=== PATIENT | female | born 1990 | race Hispanic/Latino ===

== ENCOUNTER 2018-04-21 20:58 | Emergency (ER) | payer SELFPAY ==
[2018-04-21 21:31] LABS: Pregnancy Test - Urine (BHCG) POSITIVE (Negative); Pregu Control Background? CLEAR/WHITE (CLR/WHITE); Pregu Control Bar Appear? YES (CONTROL BAR)
[2018-04-21 21:34] LABS: Bilirubin Negative (Negative); Blood, Urine Negative (Negative); Clarity CLOUDY (Clear); Glucose, Urine (Dipstick) Negative (Negative); Leukocyte Moderate (Negative); Nitrite Negative (Negative); Protein, Urine (Dipstick) Negative (Neg-Trace); Specific Gravity, Urine 1.023 (1.002-1.036); Urobilinogen 0.2 mg/dL (0.2-1.0); pH, Urine 5.5 (5.0-9.0)
[2018-04-21 21:36] LABS: Bacteria/HPF Rare-Few HPF (None Seen); Hyaline Casts/LPF 7-10 HYALINE CAST LPF (0-3 Hyaline)
[2018-04-21 21:38] LABS: Specific Gravity 1.023 (1.002-1.036)
[2018-04-21 21:46] LABS: RBC/HPF 0-3 HPF (0-3)
[2018-04-21 21:47] LABS: #Basophils 0.1 thou/uL (0.0-0.2); #Lymphocytes 1.9 thou/uL (1.20-3.40); #Monocytes 0.6 thou/uL (0.11-0.59); #Neutrophils 4.9 thou/uL (1.40-6.50); %Basophils 0.9 % (0.0-1.0); %Eosinophils 0.6 % (0.0-10.0); %Lymphocytes 25.7 % (21.0-51.0); %Monocytes 8.1 % (0.0-10.0); %Neutrophils 64.7 % (42.0-75.0); Hemoglobin 12.8 g/dL (12.0-16.0); Mean Corpuscular Hemoglobin 27.7 pg (27.0-31.0); Mean Corpuscular Volume 81.4 fl (81.0-99.0); Mean Platelet Volume 8.4 fL (7.4-10.4); Platelet Count 231 thou/uL (130-400); RBC Distribution Width 15.3 % (11.5-14.5); Red Blood Cell (RBC) Count 4.62 mill/uL (4.20-5.40); White Blood Cell (WBC) Count 7.6 thou/uL (4.8-10.8)
[2018-04-21 22:04] LABS: BHCG - Serum POSITIVE (NEGATIVE); Pregs Control Background? CLEAR/WHITE (CLR/WHITE); Pregs Control Bar Appear? YES (CONTROL BAR)
[2018-04-21 22:07] LABS: ALT (SGPT) 8 U/L (8-55); AST (SGOT) 16 U/L (5-34); Albumin 4.4 g/dL (3.5-5.0); Alkaline Phosphatase 55 U/L (40-150); Anion Gap 11 mmol/L (10-20); BUN (Urea Nitrogen) 8 mg/dL (7.0-18.7); Bilirubin, Total 0.9 mg/dL (0.2-1.2); Calc. Creatinine Clearance 0 mL/min (70-130); Calcium 9.3 mg/dL (7.8-10.44); Carbon Dioxide 25 mmol/L (22-29); Chloride 102 mmol/L (98-107); Estimated GFR-MDRD Greater than 90; Globulin 2.7 g/dL (2.4-3.5); Glucose 89 mg/dL (70-105); Lipase 21 U/L (8-78); Potassium 3.5 mmol/L (3.5-5.1); Protein, Total 7.1 g/dL (6.0-8.3); Sodium 134 mmol/L (136-145)
--- NOTE | 2018-04-21 23:43 | ULT ---
OB ULTRASOUND: Date: 04/21/18 PROVIDED CLINICAL HISTORY: , IUD. FINDINGS: A single live intrauterine gestation is documented, 6 weeks/4 days by crown-rump length. Heart rate o f 116 beats/minute is documented. This is immediately adjacent to linear increased echogenicity desi tible with known intrauterine device. The right ovary measures about 2.6 x 3.2 x 2.7 cm, and appears sonographically unremarkable. The left ovary is not visualized. Color Doppler and spectral analysis of the right ovary reveals normal flow. There is a focal area of diminished echogenicity measuring about 2.4 cm, also adjacent to the IUD. It is not certain on the basis of this study whether this reflects a myometrial or endometrial process. This could reflect perigestational hemorrhage, though this is not completely certain. IMPRESSION: Single, live intrauterine gestation adjacent to IUD, as above. POS: [facility]
[2018-04-22] MEDS ORDERED: Metoclopramide HCl 10 MG/2 ML VIAL ONE (00:29)
[2018-04-22] MEDS ORDERED: diphenhydrAMINE 50 MG/ML VIAL ONE (00:29)
[2018-04-25 01:36] LABS: Chlamydia by PCR Not Detected (NotDetected); GC by PCR Not Detected (NotDetected)
== END 2018-04-22 02:25 | disposition home or self-care (01) ==
LOC: ERS 20:58
DX: O21.0 Mild hyperemesis gravidarum (principal); O23.41 Unspecified infection of urinary tract in pregnancy, first trimester; O99.011 Anemia complicating pregnancy, first trimester; D57.3 Sickle-cell trait; Z3A.09 9 weeks gestation of pregnancy
CPT/HCPCS: 36415; 76856; 80053; 81003; 81015; 81025; 83690; 84702; 84703; 85025; 87480; 87491; 87510; 87591; 87660; 93976; 96365; 96375; J1200; J2765

== ENCOUNTER 2018-04-27 08:45 | Emergency (ER) | payer MEDICAID, SELFPAY ==
[2018-04-27 09:29] LABS: Bilirubin Negative (Negative); Blood, Urine Negative (Negative); Clarity CLOUDY (Clear); Glucose, Urine (Dipstick) Negative (Negative); Leukocyte Small (Negative); Nitrite Negative (Negative); Protein, Urine (Dipstick) Negative (Neg-Trace); Specific Gravity, Urine 1.016 (1.002-1.036); Urobilinogen 0.2 mg/dL (0.2-1.0); pH, Urine 6.5 (5.0-9.0)
[2018-04-27 09:32] LABS: Bacteria/HPF None Seen HPF (None Seen); Hyaline Casts/LPF 7-10 HYALINE CAST LPF (0-3 Hyaline); RBC/HPF 0-3 HPF (0-3); Squamous Epithelial 0-3 HPF (0-3); WBC/HPF 0-3 HPF (0-3)
[2018-04-27 09:36] LABS: Pathc Cast-AUWi Flag 3.19 (0-2.49)
[2018-04-27 09:37] LABS: Manual Microscopic Reviewed? No Path Casts Seen; Renal Epithelial None Seen HPF (0-3); Transitional Epithelial NONE SEEN HPF (0-3)
[2018-04-27 09:37] LABS: #Eosinphils 0.1 thou/uL (0.0-0.7); #Lymphocytes 2.1 thou/uL (1.20-3.40); #Monocytes 0.6 thou/uL (0.11-0.59); #Neutrophils 4.3 thou/uL (1.40-6.50); %Basophils 0.5 % (0.0-1.0); %Lymphocytes 29.6 % (21.0-51.0); %Neutrophils 60.9 % (42.0-75.0); Hemoglobin 12.2 g/dL (12.0-16.0); Mean Corpuscular HGB CONC 34.7 g/dL (32.0-36.0); Mean Corpuscular Hemoglobin 28.5 pg (27.0-31.0); Mean Corpuscular Volume 82.2 fl (81.0-99.0); Platelet Count 225 thou/uL (130-400); RBC Distribution Width 15.5 % (11.5-14.5); Red Blood Cell (RBC) Count 4.29 mill/uL (4.20-5.40); White Blood Cell (WBC) Count 7.1 thou/uL (4.8-10.8)
--- NOTE | 2018-04-27 16:12 | ULT ---
PELVIC ULTRASOUND: HISTORY: Abdominal pain. patient with intrauterine device. COMPARISON: 04/21/18. FINDINGS: Uterus is identified, without myometrial masses. Uterus measures 8.8 x 6.2 x 7.2 cm. Redemonstratio n of a gestational sac, yolk sac, and pole. There are heart tones with a rate of 162 b.p .m. Hutchinson-rump length is 1.12 cm corresponding to a gestational age of 7 weeks 2 days. Intrauterine device is noted. No subchorionic hemorrhage. Ovaries have a normal echotexture. The right ovary measures 4.0 x 2.4 x 1.8 cm. Questionable left o vary. Evaluation is limited due to location. What may be the left ovary measures 2.7 x 1.8 x 2.4 cm . There is no free fluid. OVARIAN DOPPLER: There is vascular flow to the right ovary. Flow is not appreciated in what is possibly the left ovar y. IMPRESSION: 1. Single intrauterine gestation with heart tones. Heart rate is 162 b.p.m. 2. Gestational age by crown-rump length is 7 weeks 2 days. 3. Intrauterine device is redemonstrated. 4. There is flow in the right ovary. 5. Lack of flow in what may be the left ovary. Correlate clinically. Results of the study discussed with Dr. Shama Cates 04/27/18 at 10:25 a.m. CODE TOMMIE POS: [facility]
== END 2018-04-27 10:50 | disposition home or self-care (01) ==
LOC: ERS 08:45
DX: O20.0 Threatened abortion (principal); Z79.899 Other long term (current) drug therapy; Z3A.11 11 weeks gestation of pregnancy
CPT/HCPCS: 36415; 51701; 76856; 81003; 81015; 84702; 85025; 86900; 86901

== ENCOUNTER 2018-05-11 18:41 | Emergency (ER) | payer MEDICAID ==
[2018-05-11 19:12] LABS: Bilirubin Negative (Negative); Blood, Urine Large (Negative); Clarity CLEAR (Clear); Glucose, Urine (Dipstick) Negative (Negative); Leukocyte Moderate (Negative); Nitrite Negative (Negative); Protein, Urine (Dipstick) Negative (Neg-Trace); Specific Gravity, Urine 1.014 (1.002-1.036); Urobilinogen 0.2 mg/dL (0.2-1.0); pH, Urine 6.5 (5.0-9.0)
[2018-05-11 19:14] LABS: #Basophils 0.1 thou/uL (0.0-0.2); #Eosinphils 0.1 thou/uL (0.0-0.7); #Lymphocytes 2.7 thou/uL (1.20-3.40); #Monocytes 0.7 thou/uL (0.11-0.59); %Basophils 0.6 % (0.0-1.0); %Eosinophils 0.8 % (0.0-10.0); %Lymphocytes 23.2 % (21.0-51.0); %Monocytes 6.2 % (0.0-10.0); %Neutrophils 69.3 % (42.0-75.0); Hemoglobin 12.7 g/dL (12.0-16.0); Mean Corpuscular HGB CONC 34.8 g/dL (32.0-36.0); Mean Corpuscular Hemoglobin 28.7 pg (27.0-31.0); Mean Corpuscular Volume 82.4 fl (81.0-99.0); Mean Platelet Volume 7.9 fL (7.4-10.4); Platelet Count 259 thou/uL (130-400); RBC Distribution Width 15.5 % (11.5-14.5); Red Blood Cell (RBC) Count 4.41 mill/uL (4.20-5.40); White Blood Cell (WBC) Count 11.5 thou/uL (4.8-10.8)
[2018-05-11 19:15] LABS: Bacteria/HPF None Seen HPF (None Seen); Hyaline Casts/LPF 0-3 HYALINE CAST LPF (0-3 Hyaline); Pathc Cast-AUWi Flag 0.29 (0-2.49); RBC/HPF 0-3 HPF (0-3); Squamous Epithelial 0-3 HPF (0-3)
--- NOTE | 2018-05-11 20:11 | ULT ---
PELVIC ULTRASOUND TRANSVAGINAL WITH DOPPLER: History: Vaginal bleeding. Comparison: Pelvic ultrasound, 04-27-18 Technique: Real-time grayscale, color, and spectral analysis of the pelvis was performed via transabd ominal approach. FINDINGS: Single live intrauterine . Both ovaries are normal. Vascular flow to both ovaries. heart rate 173 beats/minute. Macarthur-rump length is 2.7 cm, 9 week 3 day. The uterus measures 11.2 x 6.3 x 9.6 cm. IMPRESSION: Normal single live intrauterine . Small subchorionic hematoma. POS: [facility]
== END 2018-05-11 20:10 | disposition home or self-care (01) ==
LOC: ERS 18:41
DX: O20.0 Threatened abortion (principal); O99.011 Anemia complicating pregnancy, first trimester; D57.3 Sickle-cell trait; Z3A.09 9 weeks gestation of pregnancy
CPT/HCPCS: 36415; 76856; 81003; 81015; 84702; 85025; 86900; 86901; 94760

== ENCOUNTER 2018-05-14 18:35 | Inpatient (IN) | payer MEDICAID, OTHER ==
[2018-05-14] MEDS ORDERED: Ondansetron ODT 4 MG TAB ONE (19:00)
[2018-05-14 19:10] LABS: Hemoglobin 12.7 g/dL (12.0-16.0); Mean Corpuscular Hemoglobin 28.6 pg (27.0-31.0); Mean Corpuscular Volume 81.6 fl (81.0-99.0); Mean Platelet Volume 7.9 fL (7.4-10.4); Platelet Count 244 thou/uL (130-400); RBC Distribution Width 15.1 % (11.5-14.5); Red Blood Cell (RBC) Count 4.46 mill/uL (4.20-5.40); White Blood Cell (WBC) Count 17.2 thou/uL (4.8-10.8)
[2018-05-14 19:25] LABS: Band 12 % (5-11); Lymphocytes 8 % (21-51); MDiff Complete? YES; Monocytes 4 % (0-10); Neutrophil 75 % (42-75); PLT Morphology Comment Appears Adequate; RBC Morphology Normal
[2018-05-14 19:26] LABS: Bilirubin Negative (Negative); Blood, Urine Trace (Negative); Clarity CLEAR (Clear); Glucose, Urine (Dipstick) Negative (Negative); Leukocyte Moderate (Negative); Nitrite Negative (Negative); Protein, Urine (Dipstick) Negative (Neg-Trace); Specific Gravity, Urine 1.017 (1.002-1.036); Urobilinogen 0.2 mg/dL (0.2-1.0); pH, Urine 5.5 (5.0-9.0)
[2018-05-14 19:27] LABS: ALT (SGPT) 9 U/L (8-55); AST (SGOT) 15 U/L (5-34); Albumin 4.1 g/dL (3.5-5.0); Alkaline Phosphatase 68 U/L (40-150); Anion Gap 14 mmol/L (10-20); BUN (Urea Nitrogen) 9 mg/dL (7.0-18.7); Bilirubin, Total 0.4 mg/dL (0.2-1.2); Calc. Creatinine Clearance 0 mL/min (70-130); Calcium 9.5 mg/dL (7.8-10.44); Carbon Dioxide 21 mmol/L (22-29); Chloride 102 mmol/L (98-107); Estimated GFR-MDRD Greater than 90; Glucose 102 mg/dL (70-105); Potassium 3.5 mmol/L (3.5-5.1); Protein, Total 7.1 g/dL (6.0-8.3); Sodium 133 mmol/L (136-145)
[2018-05-14 19:28] LABS: Bacteria/HPF None Seen HPF (None Seen); Hyaline Casts/LPF 0-3 HYALINE CAST LPF (0-3 Hyaline); Pathc Cast-AUWi Flag 0.29 (0-2.49); Squamous Epithelial 0-3 HPF (0-3); WBC/HPF 0-3 HPF (0-3)
[2018-05-14] MEDS ORDERED: Acetaminophen 500 MG TAB ONE (20:24)
[2018-05-14] MEDS ORDERED: Nitroglycerin 0.4 MG TAB (25 Tab Bottle) ONE (20:35)
--- NOTE | 2018-05-14 22:05 | MRI ---
MRI ABDOMEN WITHOUT CONTRAST: 05/14/18 Multiplanar and multisequential imaging abdomen obtained. INDICATIONS: Right lower quadrant pain. the patient has an intrauterine and MRI was performed to rule ou t appendicitis. There is a gravid uterus with an intrauterine identified. Small bowel loops appear normal. the appendix is identified and appears unremarkable. There is no sharon dence of appendicitis. The urinary bladder is mildly distended. The gallbladder is visualized and appears unremarkable. Live r is only partially imaged. The kidneys appear unremarkable. IMPRESSION: No evidence of appendicitis. POS: [facility]
[2018-05-14] MEDS ORDERED: Piperacillin/Tazobactam 3.375 GM VIAL ONE (22:06)
[2018-05-14] MEDS ORDERED: Acetaminophen 325 MG TAB PO PRN (22:18)
[2018-05-14] MEDS ORDERED: Ondansetron ODT 4 MG TAB PO PRN (22:18)
[2018-05-14] MEDS: Sodium Chloride 0.9% 1,000 ML IV SCH (23:25)
[2018-05-15] MEDS: Piperacillin/Tazobactam 3.375 GM in Sodium Chloride 0.9% 100 ML IVPB SCH ×4 (04:10→19:52)
[2018-05-15 06:14] LABS: Band 15 % (5-11); Lymphocytes 7 % (21-51); MDiff Complete? YES; Mean Corpuscular HGB CONC 34.9 g/dL (32.0-36.0); Mean Corpuscular Hemoglobin 28.8 pg (27.0-31.0); Mean Corpuscular Volume 82.5 fl (81.0-99.0); Mean Platelet Volume 7.8 fL (7.4-10.4); Monocytes 8 % (0-10); Neutrophil 70 % (42-75); PLT Morphology Comment Appears Adequate; Platelet Count 201 thou/uL (130-400); RBC Distribution Width 15.2 % (11.5-14.5); RBC Morphology Normal; Red Blood Cell (RBC) Count 3.82 mill/uL (4.20-5.40); White Blood Cell (WBC) Count 15.7 thou/uL (4.8-10.8)
[2018-05-15] MEDS: Sodium Chloride 0.9% 1,000 ML IV SCH ×2 (07:10→18:03)
[2018-05-15] MEDS ORDERED: Ondansetron HCl/PF 4 MG/2 ML Vial SLOW IVP PRN (08:08)
[2018-05-15] MEDS ORDERED: Ondansetron HCl/PF 4 MG/2 ML Vial IVP PRN (08:39)
[2018-05-15] MEDS: Meclizine HCl 25 MG TAB PO SCH ×3 (09:23→22:01)
--- NOTE | 2018-05-15 12:44 | HP ---
DATE OF SERVICE: 05/14/2018 CHIEF COMPLAINT: Vaginal bleeding, abdominal pain, fever. HISTORY OF PRESENT ILLNESS: This is a 28-year-old at approximately 9 weeks' gestation with a M estuardo IUD in place. She sees Dr. Bella after this and has been seen multiple times for vag inal bleeding. She came in tonight with low-grade fever and cramping as well as nausea and vomiting. Previous attempts of removal was unsuccessful as the strings are not visible at the os. REVIEW OF SYSTEMS: Negative for head, eyes, ears, nose, throat, cardiovascular, respiratory, GI, , neuro, psych, musculoskeletal, skin or constitutional symptoms other than mentioned above. PAST MEDICAL HISTORY: Sickle cell trait. PAST SURGICAL HISTORY: None. SOCIAL HISTORY: Negative for tobacco, alcohol, or drug abuse. MEDICATIONS: vitamin. ALLERGIES: No known drug allergies. PHYSICAL EXAMINATION: VITAL SIGNS: Temperature 100, mildly tachycardic in the low 100s, normotensive. GENERAL: Awake, alert, in no acute distress, appears comfortable. CHEST: Nonlabored breathing. ABDOMEN: Soft, mildly tender to palpation in the lower abdomen. No overt fundal tenderness. No gua rding or rebound. PELVIC: Deferred at this time. She is being taken to MRI, but pelvic exam reportedly with a closed cervix and some discomfort on exam. LABORATORY DATA: WBC 17.2, bands 12%, hemoglobin 12.7, hematocrit 36.2, platelets 244,000. Chemistr y unremarkable. Urine unremarkable. Lactate 0.9. IMAGING: MRI, no evidence of appendicitis. Bedside ultrasound performed by ED provider revealed a v iable fetus with cardiac activity. ASSESSMENT AND PLAN: A 28-year-old at 9 weeks 6 days with a viable intrauterine with Mirena IUD in place, given her very low-grade temperature and elevated WBC count and higher risk for intrauterine infection. She will be admitted for IV antibiotics and serial vital signs. We will re peat a CBC with differential in the morning. Dr. Bella was notified of her admission and will be see ing her tomorrow. Intrauterine with a Mirena IUD in place. Previous attempts of removal w ere unsuccessful. The patient will be placed inpatient for serial vitals and repeat labs in the [facility] ing. Zosyn was started in the emergency department and will be continued on the floor. Dr. Bella is aware of the patient and will be seeing her tomorrow. Given her .
[2018-05-15] MEDS ORDERED: Progesterone,Micronized 100 MG CAP FS SCH (13:00)
[2018-05-15] MEDS: diphenhydrAMINE 50 MG/ML VIAL IVP SCH ×2 (15:24→22:02)
[2018-05-15] MEDS: Metoclopramide HCl 10 MG/2 ML VIAL IVP SCH ×2 (15:25→22:02)
[2018-05-15] MEDS: Ondansetron HCl/PF 4 MG/2 ML Vial IVP SCH ×2 (15:59→22:04)
[2018-05-15] MEDS: Progesterone,Micronized 100 MG CAP FS SCH (22:02)
[2018-05-16] MEDS: Piperacillin/Tazobactam 3.375 GM in Sodium Chloride 0.9% 100 ML IVPB SCH ×2 (02:21→10:02)
[2018-05-16] MEDS: Sodium Chloride 0.9% 1,000 ML IV SCH (02:24)
[2018-05-16] MEDS: Metoclopramide HCl 10 MG/2 ML VIAL IVP SCH ×2 (04:12→10:04)
[2018-05-16] MEDS: diphenhydrAMINE 50 MG/ML VIAL IVP SCH ×2 (04:14→10:04)
[2018-05-16] MEDS: Ondansetron HCl/PF 4 MG/2 ML Vial IVP SCH ×2 (04:18→10:04)
[2018-05-16] MEDS: Meclizine HCl 25 MG TAB PO SCH (10:02)
[2018-05-16] MEDS: Progesterone,Micronized 100 MG CAP FS SCH (10:03)
[2018-05-16 12:48] VITALS: BP 96/59; TEMP 98.7
== END 2018-05-16 16:28 | disposition home or self-care (01) | DRG 781 ==
LOC: ERS 18:35 → 3SE 21:40 → OBSVTOIN 22:18
PROVIDERS: ADMIT Obstetrics & Gynecology; ATTEND Obstetrics & Gynecology
DX: O26.31 Retained intrauterine contraceptive device in pregnancy, first trimester (principal); O20.0 Threatened abortion; O99.011 Anemia complicating pregnancy, first trimester; D57.1 Sickle-cell disease without crisis; Z3A.09 9 weeks gestation of pregnancy
CPT/HCPCS: 36415; 74181; 76815; 80053; 81003; 81015; 83605; 85007; 85025; 85027; A4216; J1200; J2405; J2543; J2765; J7050; Q0162

== ENCOUNTER 2018-05-25 13:47 | Emergency (ER) | payer OTHER ==
[2018-05-25 14:24] LABS: #Monocytes 0.6 thou/uL (0.11-0.59); #Neutrophils 14.3 thou/uL (1.40-6.50); %Basophils 0.1 % (0.0-1.0); %Monocytes 3.9 % (0.0-10.0); Hemoglobin 12.6 g/dL (12.0-16.0); Mean Corpuscular HGB CONC 35.6 g/dL (32.0-36.0); Mean Corpuscular Hemoglobin 29.3 pg (27.0-31.0); Mean Corpuscular Volume 82.3 fL (78.0-98.0); Mean Platelet Volume 7.8 fL (7.4-10.4); Platelet Count 249 thou/uL (130-400); RBC Distribution Width 14.7 % (11.5-14.5); Red Blood Cell (RBC) Count 4.31 mill/uL (4.20-5.40); White Blood Cell (WBC) Count 15.8 thou/uL (4.8-10.8)
[2018-05-25] MEDS ORDERED: Ondansetron ODT 4 MG TAB ONE (14:48)
--- NOTE | 2018-05-25 15:06 | ULT ---
PELVIC ULTRASOUND: COMPARISON: None. HISTORY: Pelvic pain and bleeding for 2 weeks. TECHNIQUE: Multiplanar, lynn scale, and color Doppler images are obtained in a transabdominal pelvic ultrasound. Spectral analysis of the Doppler waveform of the right ovary was performed. FINDINGS: No gestational sac is seen within the uterus. The endometrial stripe appears thickened and heterogen eous in appearance measuring approximately 4.5 cm in width. No significant internal flow is seen wit h color Doppler imaging within the echogenic region. Echogenic structure adjacent to this hyperechoi c endometrium represents an IUD. No free fluid is seen in the pelvis. The right ovary is normal size in appearance and demonstrates n ormal internal flow. The left ovary cannot be visualized. No definite ectopic is seen. IMPRESSION: 1. The patient has an Intrauterine device within the uterus. Adjacent to this Intrauterine device i s an echogenic region which could represent endometrial thickening, blood, or an endometrial mass. C orrelate with gynecologic exam. 2. No evidence of intrauterine or ectopic . POS: [facility]
[2018-05-25] MEDS ORDERED: traMADol HCl 50 MG TAB ONE (16:28)
== END 2018-05-25 16:55 | disposition home or self-care (01) ==
LOC: ERS 13:47
DX: O03.9 Complete or unspecified spontaneous abortion without complication (principal); D64.9 Anemia, unspecified; D57.3 Sickle-cell trait
CPT/HCPCS: 36415; 76856; 84702; 85025; 86900; 86901; 88305; 93976; 96361; 96374; J2270; Q0162